=== PATIENT | male | born 1955 | race Caucasian/White ===

== ENCOUNTER → 2017-06-18 | Outpatient (CLI) | payer BC ==
--- NOTE | 2017-06-18 11:23 | ECHOS ---
DATE OF SERVICE: 06/18/2017 TYPE OF REPORT: STRESS ECHOCARDIOGRAM INDICATION: Chest pain. BASELINE HEART RATE: 95 BASELINE BLOOD PRESSURE: 102/46 MAXIMUM HEART RATE: 148 MAXIMUM BLOOD PRESSURE: 191/42 85% MPHR: 135 100% MPHR: 159 METS: 9.7 MAXIMUM STAGE REACHED: II TOTAL EXERCISE TIME: 8:01 Baseline EKG revealed a normal sinus rhythm without significant ST-T changes. Patient walked on a standard Jone protocol for 8 minutes, achieved a maximum heart rate of 148 beats per minute which is well above 85% of predicted maximal. He developed fatigue and shortness of breath but did not have any angina or arrhythmia. EKG did not reveal any ST-segment changes to indicate ischemia. By EKG criteria, this is a negative stress test with fair exercise capacity. Baseline echo imaging revealed normal wall motion and wall thickening of all segments. At peak exercise, there was good augmentation of left ventricular wall motion and wall thickening of all segments suggesting that there is no evidence of stress induced ischemia on this study. FINAL IMPRESSION: 1. Fair exercise capacity with a negative stress test by EKG criteria. 2. Normal stress echocardiogram. AMADOR
== END ==
LOC: RADNMMAIN 09:56
PROVIDERS: ATTEND Family Medicine
DX: R07.89 Other chest pain (principal)
CPT/HCPCS: 93017; 93350

== ENCOUNTER 2018-01-01 06:20 | Day surgery (SDC) | payer BC ==
[2017-12-27 16:03] VITALS: BMI 29.2
[~2018-01-01 06:20] MED LIST: LACTATED RINGERS 1,000 ML IV SCH; MOXIFLOXACIN HCL 0.5% DROPS 3 ML BTL OP ONE; TETRACAINE 0.5% OPHTH (PF) DROPS 4 ML BTL OP ONE; TIMOLOL 0.5% OPHTH DROPS 5 ML BTL OP ONE
[2018-01-01] MEDS: CYCLOPENTOLATE 1% OPHTH SOLN 2 ML BTL OP ONE ×3 (06:35→06:41)
[2018-01-01] MEDS: PHENYLEPHRINE 2.5% OPHTH DRP 2ML OP NR ×3 (06:44→06:50)
[2018-01-01] MEDS ORDERED: LIDOCAINE 1% 20 ML VIAL (10MG/ML) FOR IV START INTRADERMA ONE (06:50)
[2018-01-01 06:56] VITALS: RESP 16; TEMP 98
[2018-01-01 07:04] LABS: Glucose,Whole Blood 108 mg/dL (75-99)
[2018-01-01] MEDS ORDERED: BALANCED SALT IRRIG SOLN COMB2 15 ML IRRIG.SOLN INTRAOCULA ONE (07:24)
[2018-01-01] MEDS ORDERED: HYALURONATE SODIUM INTRAOCULAR 1 EACH SYRINGE (12MG/ML) INTRAOCULA ONE (07:24)
[2018-01-01] MEDS ORDERED: LIDOCAINE 1% (PF) 10MG/ML VIAL MISCELLANE ONE (07:25)
[2018-01-01] MEDS ORDERED: MIDAZOLAM 2 MG/2 ML VIAL ONE (07:33)
[2018-01-01] MEDS ORDERED: fentaNYL (PF) 50 MCG/ML 2 ML AMP ONE (07:33)
[2018-01-01] MEDS ORDERED: EPINEPHrine (PF) 0.3 ML in BALANCED SALT IRRIG SOLN COMB2 500 ML IRRIGATION ONE (07:35)
--- NOTE | 2018-01-01 08:03 | P.OP ---
Date of Procedure: 01/01/18 Preoperative Diagnosis: NS Postoperative Diagnosis: same Procedure(s) Performed: PIOL OS Implants: PCB00 24.00 Anesthesia: MAC Surgeon: Ad Cline Estimated Blood Loss (ml): 0 Pathology: none sent Condition: stable Disposition: same day Indications for Procedure: blurry vision Operative Findings: No comlpications
[2018-01-01 08:22] VITALS: BP 113/72; PULSE 89
[2018-01-01 08:25] LABS: Glucose,Whole Blood 98 mg/dL (75-99)
--- NOTE | 2018-01-01 14:33 | OP ---
OPERATIVE REPORT DATE OF SURGERY: 01/01/2018. PROCEDURE: Phacoemulsification of cataract and intraocular lens implant of the left eye. PREOPERATIVE DIAGNOSIS: Nuclear sclerosis. ESTIMATED BLOOD LOSS:: Zero. SPECIMEN TAKEN:: None. NARRATIVE:: After obtaining the appropriate consent, the patient was brought to the Operating Room where the patient was placed under cardiac monitoring and prepped and draped in the usual sterile manner. At the 5 oclock position a 15 degree super sharp blade was used to create a paracentesis followed by instillation of 1% Xylocaine MPF 50:50 mix with BSS into the anterior chamber. This was followed by Amvisc to stabilize the anterior chamber. At the 3 oclock position a self-sealing corneal flap incision was created using 2.8 mm jorge keratome. A cystatome was used to initiate a continuous tear capsulorrhexis which was completed with the Utrata forceps. A Binkhorst cannula was used to hydrodissect the lens nucleus followed by hydrodelineation. Phacoemulsification of the lens was performed utilizing phacochop in 22.25 seconds at 18% power. The remaining cortical material was removed using the irrigation aspiration mode followed by additional 1% Xylocaine MPF into the anterior chamber followed by viscoelastic to stabilize the capsular bag. An CASSIE PCB 00 24.0 diopters posterior chamber lens was placed into the capsular bag without difficulty. The remaining viscoelastic material was removed from the anterior chamber with the irrigation/aspiration. Balanced salt solution was used to normalize the intraocular pressure. The incision was checked for watertight integrity. The patient then received two drops of 0.5% timolol followed by two drops Vigamox, was lightly patched and shielded in the usual manner. There were no complications from the procedure. The patient tolerated the procedure well and was returned to recovery in good condition. MMODL / IJN: [id number] /
== END 2018-01-01 08:44 | disposition home or self-care (01) ==
LOC: OR 06:20
PROVIDERS: ATTEND Ophthalmology
DX: E11.36 Type 2 diabetes mellitus with diabetic cataract (principal); E11.3392 Type 2 diabetes mellitus with moderate nonproliferative diabetic retinopathy without macular edema, left eye; E11.3291 Type 2 diabetes mellitus with mild nonproliferative diabetic retinopathy without macular edema, right eye; H52.03 Hypermetropia, bilateral; H52.223 Regular astigmatism, bilateral; H52.4 Presbyopia; Z90.49 Acquired absence of other specified parts of digestive tract; Z87.891 Personal history of nicotine dependence; Z79.82 Long term (current) use of aspirin; Z79.4 Long term (current) use of insulin; Z79.899 Other long term (current) drug therapy; I10 Essential (primary) hypertension; Z97.3 Presence of spectacles and contact lenses
CPT/HCPCS: 66984; C1780; J2250; J0171; J3010; J2001

== ENCOUNTER 2018-01-29 06:12 | Day surgery (SDC) | payer BC ==
[2018-01-24 14:45] VITALS: BMI 27.9
[2018-01-29 06:33] VITALS: TEMP 98.1
[2018-01-29] MEDS: CYCLOPENTOLATE 1% OPHTH SOLN 2 ML BTL OP ONE ×3 (06:38→06:58)
[2018-01-29] MEDS: PHENYLEPHRINE 2.5% OPHTH DRP 2ML OP NR ×4 (06:41→07:54)
[2018-01-29 06:58] LABS: Glucose,Whole Blood 103 mg/dL (75-99)
[2018-01-29] MEDS ORDERED: LIDOCAINE 1% 20 ML VIAL (10MG/ML) FOR IV START INTRADERMA ONE (06:58)
[2018-01-29] MEDS ORDERED: MIDAZOLAM 2 MG/2 ML VIAL ONE (07:35)
[2018-01-29] MEDS ORDERED: fentaNYL (PF) 50 MCG/ML 2 ML AMP ONE (07:35)
[2018-01-29] MEDS ORDERED: EPINEPHrine (PF) 0.3 ML in BALANCED SALT IRRIG SOLN COMB2 500 ML IRRIGATION ONE (07:45)
[2018-01-29] MEDS ORDERED: HYALURONATE SODIUM INTRAOCULAR 1 EACH SYRINGE (12MG/ML) INTRAOCULA ONE (07:52)
[2018-01-29] MEDS ORDERED: BALANCED SALT IRRIG SOLN COMB2 15 ML IRRIG.SOLN IRRIGATION ONE (07:53)
[2018-01-29] MEDS ORDERED: LIDOCAINE 1% (PF) 10MG/ML VIAL MISCELLANE ONE (07:54)
--- NOTE | 2018-01-29 08:07 | P.OP ---
Date of Procedure: 01/29/18 Preoperative Diagnosis: NS Postoperative Diagnosis: same Procedure(s) Performed: PIOL, OD Implants: PCB00 24.00 Anesthesia: MAC Surgeon: Ad Cline Estimated Blood Loss (ml): 0 Pathology: none sent Condition: stable Disposition: same day Indications for Procedure: blurry vision Operative Findings: no complications
[2018-01-29 08:09] VITALS: RESP 16
[2018-01-29 08:24] VITALS: BP 105/65; PULSE 79
[2018-01-29 08:31] LABS: Glucose,Whole Blood 85 mg/dL (75-99)
--- NOTE | 2018-01-30 10:33 | OP ---
OPERATIVE REPORT DATE OF SURGERY: 01/29/2018 PROCEDURES: Phacoemulsification of cataract and intraocular lens implant of the right eye. PREOPERATIVE DIAGNOSIS:: Nuclear sclerosis. POSTOPERATIVE DIAGNOSIS:: Nuclear sclerosis. OPERATION:: Clear cornea phacoemulsification of cataract @@OD/OS eye. ESTIMATED BLOOD LOSS:: Zero. SPECIMEN TAKEN:: None. NARRATIVE:: After obtaining the appropriate consent, the patient was brought to the Operating Room where the patient was placed under cardiac monitoring and prepped and draped in the usual sterile manner. At the 11 o'clock position a 15 degree super sharp blade was used to create a paracentesis followed by instillation of 1% Xylocaine MPF 50:50 mix with BSS into the anterior chamber. This was followed by to stabilize the anterior chamber. At the 9 o'clock position a self-sealing corneal flap incision was created using 2.8 mm jorge keratome. A cystotome was used to initiate a continuous tear capsulorrhexis which was completed with the Utrata forceps. A Binkhorst cannula was used to hydrodissect the lens nucleus followed by hydrodelineation. Phacoemulsification of the lens was performed utilizing phaco-chop in 18.39seconds at 11% power. The remaining cortical material was removed using the irrigation aspiration mode followed by additional 1% Xylocaine MPF into the anterior chamber followed by viscoelastic Amvisc to stabilize the capsular bag. An VHNOXM01 24.0 posterior chamber lens was placed into the capsular bag without difficulty. The remaining viscoelastic material was removed from the anterior chamber with the irrigation/aspiration. Balanced salt solution was used to normalize the intraocular pressure. The incision was checked for watertight integrity. The patient then received two drops of 0.5% timolol followed by two drops Vigamox, was lightly patched and shielded in the usual manner. There were no complications from the procedure. The patient tolerated the procedure well and was returned to recovery in good condition. MMODL / IJN: [id number] /
== END 2018-01-29 08:46 | disposition home or self-care (01) ==
LOC: OR 06:12
PROVIDERS: ATTEND Ophthalmology
DX: E11.36 Type 2 diabetes mellitus with diabetic cataract (principal); Z98.42 Cataract extraction status, left eye; Z96.1 Presence of intraocular lens; Z90.49 Acquired absence of other specified parts of digestive tract; Z79.4 Long term (current) use of insulin; Z79.82 Long term (current) use of aspirin; Z79.899 Other long term (current) drug therapy; E11.3392 Type 2 diabetes mellitus with moderate nonproliferative diabetic retinopathy without macular edema, left eye; E11.3291 Type 2 diabetes mellitus with mild nonproliferative diabetic retinopathy without macular edema, right eye; H52.03 Hypermetropia, bilateral; H52.223 Regular astigmatism, bilateral; H52.4 Presbyopia; I10 Essential (primary) hypertension
CPT/HCPCS: 66984; C1780; J2250; J0171; J3010; J2001

== ENCOUNTER → 2018-12-10 | Outpatient (CLI) | payer BC ==
[2018-12-10 08:42] LABS: Blood Urea Nitrogen 13 mg/dL (9-20)
--- NOTE | 2018-12-10 13:28 | CT ---
EXAMINATION TYPE: CT abdomen pelvis w con DATE OF EXAM: 12/10/2018 COMPARISON: None INDICATION: Abdominal pain DLP: 1772 mGycm, Automated exposure control for dose reduction was used. CONTRAST: 100 ml mL of Isovue 300. Study performed with Oral Contrast TECHNIQUE: Axial images were obtained from above the diaphragm to the pubic rami in the axial plane a t 5 mm thick sections. Reconstructed images are reviewed on the computer in the coronal plane. FINDINGS: Limited CT sections are obtained the lung bases. The lung bases are clear. CT ABDOMEN: Liver: Normal Spleen: Normal Pancreas: Normal Adrenal glands: There is a 0.9 cm nodule in the lateral right adrenal gland. Gallbladder: Tiny gallstone may be within the dependent portion of the gallbladder neck of the gallbl adder. Kidneys: No masses are evident. No hydronephrosis is present. No cysts are present. Delayed images were obtained through the kidneys, which remain unremarkable. Aorta: Vascular calcification is within the aorta. Inferior vena cava: Normal. CT PELVIS: Loops of bowel within the abdomen and pelvis are normal. There are loops of bowel which are incom pletely distended or lack oral contrast limiting their evaluation. Appendix: Normal as visualized. Urinary bladder: Normal. Genitourinary structures: Prostate is at the upper limits of normal for size. Some minimal calcificat ion is present. Osseous structures: No suspicious lytic or sclerotic lesions. IMPRESSIONS: 1. Tiny gallstone may be present. 2. 0.9 cm nodule right adrenal gland.
== END | disposition home or self-care (01) ==
LOC: RADCTMAIN 07:59
PROVIDERS: ATTEND Surgery
DX: E27.8 Other specified disorders of adrenal gland (principal); R10.32 Left lower quadrant pain
CPT/HCPCS: 82565; 84520; 74177; 36415; Q9967

== ENCOUNTER 2019-08-15 12:52 | Emergency (ER) | payer BC ==
[2019-08-15 12:59] VITALS: RESP 18; TEMP 98.1
[2019-08-15] MEDS ORDERED: KETOROLAC 30 MG/ML 1 ML VIAL IM STA (13:26)
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
[2019-08-15 13:41] VITALS: BP 112/69; PULSE 81
--- NOTE | 2019-08-15 14:08 | XR ---
EXAMINATION TYPE: XR ankle complete LT , 3 VIEWS DATE OF EXAM ORDERED: 08/15/2019 HISTORY: trauma. COMPARISON: None. FINDINGS: No fracture or dislocation is seen. There is degenerative change present in the tibiotalar joint. There is a small plantar calcaneal spur. No joint effusion is seen. IMPRESSION: NO ACUTE OSSEOUS LESION.
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
== END 2019-08-15 14:56 | disposition home or self-care (01) ==
LOC: EC 12:52
DX: S80.812A Abrasion, left lower leg, initial encounter (principal); E11.9 Type 2 diabetes mellitus without complications; Z79.82 Long term (current) use of aspirin; Z79.4 Long term (current) use of insulin; Z97.0 Presence of artificial eye; Z87.891 Personal history of nicotine dependence; V86.59XA Driver of other special all-terrain or other off-road motor vehicle injured in nontraffic accident, initial encounter; Y92.410 Unspecified street and highway as the place of occurrence of the external cause; Y93.89 Activity, other specified
CPT/HCPCS: 73590; 73610; 99284; 96372; J1885

== ENCOUNTER → 2020-09-19 | Outpatient (CLI) | payer MEDICARE, BC ==
--- NOTE | 2020-09-19 10:35 | US ---
EXAMINATION TYPE: US thyroid st tissue head/neck DATE OF EXAM: 09/19/2020 COMPARISON: NONE CLINICAL HISTORY: E01.0 Thyromegaly. Palpable area right neck per patient GLAND SIZE: Right Lobe: 4.6 x 2.0 x 1.8 cm Overall Parenchyma: homogenous Left Lobe: 4.6 x 1.3 x 1.8 cm Overall Parenchyma: homogeneous Isthmus Thickness: cm NODULES RIGHT: # of nodules measured on right: 1. 0.8 X 05 x 0.7 cm hypoechoic solid nodule at the lower pole with well-defined margins; . This n odule is wider than tall and shows intranodular vascularity. Prior size: No prev 2. 0.5 X 0.4 x 0.4 cm hypoechoic solid nodule at the upper pole with well-defined margins; . This n odule is wider than tall and shows intranodular vascularity. Prior size: no previous LEFT: # of nodules measured on left: 1 1. 0.5 X 0.3 x 0.5 cm hypoechoic solid nodule at the upper pole with well-defined margins; . This nodule is wider than tall and shows intranodular vascularity. Prior size: No previous ISTHMUS: # of nodules measured in the isthmus: 0 Bilateral neck scanned, no evidence of lymphadenopathy. No abnormality is visualized at the patient's palpable area IMPRESSION: Bilateral subcentimeter thyroid nodules.
== END | disposition home or self-care (01) ==
LOC: RADUSWWP 09:23
PROVIDERS: ATTEND Family Medicine
DX: E04.2 Nontoxic multinodular goiter (principal)
CPT/HCPCS: 76536

== ENCOUNTER 2020-09-27 12:54 | Day surgery (SDC) | payer MEDICARE, BC ==
[2020-09-27] MEDS ORDERED: ALPRAZolam 0.5 MG TAB PO STA (14:12)
[2020-09-27 14:30] VITALS: BP 115/68; PULSE 83; RESP 18; TEMP 97.1
--- NOTE | 2020-09-27 17:40 | US ---
EXAMINATION TYPE: US discontinued FNA panel DATE OF EXAM: 09/27/2020 COMPARISON: Ultrasound thyroid 09/19/2020 HISTORY: Thyroid nodule, E04.1 Review of 09/19/2020 thyroid ultrasound demonstrates subcentimeter bilateral thyroid nodules. Preprocedure ultrasound imaging of the bilateral thyroid today redemonstrates bilateral subcentimeter thyroid nodules. Utilizing ACR TI-RADS criteria: Right 0.8 cm thyroid nodule is mixed cystic and solid, iso- to hypoechoic, wider than tall, smoothly marginated, with no echogenic foci, and TR3 mildly suspicious, and not meeting size criteria for FNA (2.5 cm). Right 0.5 cm thyroid nodule is mixed cystic and solid, hypoechoic, wider than tall, smoothly marginat ed, with no echogenic foci, and TR3 mildly suspicious, and not meeting size criteria for FNA. Left 0.5 cm thyroid nodule is almost completely solid, isoechoic, wider than tall, smoothly marginate d, with no echogenic foci, and TR3 mildly suspicious, and not meeting size criteria for FNA. Findings and alternatives were discussed with the patient, including annual thyroid ultrasound for st ability. Fine-needle aspiration was also discussed with the patient. Patient in agreement with plan c anceling thyroid fine-needle aspiration procedure. IMPRESSION: 1. Canceled ultrasound-guided thyroid fine-needle aspiration. 2. Please see above description of bilateral thyroid nodules and ACR TI-RADS findings.
== END 2020-09-27 14:45 | disposition home or self-care (01) ==
LOC: RADPROMAIN 12:54
PROVIDERS: ATTEND Family Medicine
DX: E04.1 Nontoxic single thyroid nodule (principal); Z53.8 Procedure and treatment not carried out for other reasons
CPT/HCPCS: 76536

== ENCOUNTER 2024-01-14 07:28 | Day surgery (SDC) | payer MEDICARE, BC ==
[2024-01-14 08:10] VITALS: TEMP 97
[2024-01-14 08:14] LABS: Glucose,Whole Blood 150 mg/dL (70-110)
[2024-01-14] MEDS: LACTATED RINGERS 1,000 ML IV SCH (08:14)
[2024-01-14] MEDS ORDERED: PHENYLEPHRINE-0.9% NACL SYG 1,000 MCG/10 ML SYRINGE ONE (08:29)
[2024-01-14] MEDS ORDERED: LIDOCAINE 1% INJ 10MG/ML (20 ML MDV) ONE (08:29)
[2024-01-14] MEDS ORDERED: PROPOFOL 10 MG/ML 20 ML VIAL IV ONE (08:29)
--- NOTE | 2024-01-14 08:32 | P.GSHP ---
History of Present Illness H&P Date: 01/14/24 Chief Complaint: Colon cancer screening 68-year-old male here for colonoscopy. Last colonoscopy 5 years ago or so. Patient with history of previous colostomy and subsequent reversal for diverticulitis. No bowel complaints. No family history of colon cancer. Past Medical History Past Medical History: Diabetes Mellitus, Hyperlipidemia, Hypertension Additional Past Medical History / Comment(s): diverticulitis - bowel resection 20 yrs ago History of Any Multi-Drug Resistant Organisms: None Reported Past Surgical History: Bowel Resection Additional Past Surgical History / Comment(s): colonoscopy, bilat. cataract removal Past Anesthesia/Blood Transfusion Reactions: No Reported Reaction Smoking Status: Former smoker - Past Family History Mother Family Medical History: No Reported History Medications and Allergies Home Medications Medication Instructions Recorded Confirmed Type metFORMIN HCL [Glucophage] 1,000 mg PO BID 12/27/17 01/14/24 History lisinopriL [Zestril] 5 mg PO HS 09/22/20 01/14/24 History Atorvastatin [Lipitor] 10 mg PO DAILY 01/09/24 01/14/24 History Empagliflozin [Jardiance] 10 mg PO QAM 01/09/24 01/14/24 History Insulin Glargine/Lixisenatide 18 units SQ QAM 01/09/24 01/14/24 History [Soliqua 100 Unit-33 Mcg/ml Pen] Propranolol HCl [Inderal Xl] 120 mg PO HS 01/09/24 01/14/24 History Allergies Allergy/AdvReac Type Severity Reaction Status Date / Time No Known Allergies Allergy Verified 01/14/24 07:55 Surgical - Exam Vital Signs Temp Pulse Resp BP Pulse Ox 97.0 F L 78 14 119/61 96 01/14/24 07:59 01/14/24 07:59 01/14/24 07:59 01/14/24 07:59 01/14/24 07:59 Physical exam: General: Well-developed, well-nourished HEENT: Normocephalic, sclerae nonicteric Abdomen: Nontender, nondistended Extremities: No edema Neuro: Alert and oriented Results - Labs Abnormal Lab Results - Last 24 Hours (Table) 01/14/24 Range/Units 08:12 POC Glucose (mg/dL) 150 H (70-110) mg/dL Assessment and Plan (1) Colon cancer screening Narrative/Plan: Will proceed with colonoscopy at this time. Current Visit: Yes Status: Acute Code(s): Z12.11 - ENCOUNTER FOR SCREENING FOR MALIGNANT NEOPLASM OF COLON SNOMED Code(s): 708973266
--- NOTE | 2024-01-14 08:48 | P.PCN ---
Date of Procedure: 01/14/24 Procedure(s) Performed: PREOPERATIVE DIAGNOSIS: Colon cancer screening POSTOPERATIVE DIAGNOSIS: Ascending colon polyp PROCEDURE: Colonoscopy with snare polypectomy ANESTHESIA: MAC SURGEON: Matthew Olson M.D. SPECIMENS: Polyp ENDOSCOPIC PROCEDURE: The patient was placed on the endoscopy table in the left decubitus position. The Olympus colonoscope was inserted into the anus and passed under direct visualization to the base of the cecum. The appendiceal orifice was visualized. From that point the scope was slowly withdrawn inspecting all surfaces carefully. There were no neoplastic inflammatory or polypoid lesions throughout the cecum cecum. In the ascending colon a small sessile polyp measuring about 1.5 cm in length was removed in 2 pieces using the snare with cautery technique. The remainder of the ascending transverse descending and rectum appeared normal. The patient's previous colorectal anastomosis was widely patent. The prep was still somewhat suboptimal however most of the retained stool we could irrigate nicely. There was no diverticulosis seen. Digital rectal examination was normal. The patient was taken to the recovery room in stable condition per anesthesia guidelines. RECOMMENDATIONS: Await biopsy results. Tentatively plan repeat colonoscopy 5 years.
[2024-01-14 09:24] VITALS: BP 112/54; PULSE 72; RESP 16
== END 2024-01-14 09:44 | disposition home or self-care (01) ==
LOC: ORWHC2ENDO 07:28
PROVIDERS: ATTEND Surgery
DX: Z12.11 Encounter for screening for malignant neoplasm of colon (principal); D12.2 Benign neoplasm of ascending colon; I10 Essential (primary) hypertension; E78.5 Hyperlipidemia, unspecified; E11.9 Type 2 diabetes mellitus without complications; Z87.891 Personal history of nicotine dependence; Z98.890 Other specified postprocedural states; Z98.41 Cataract extraction status, right eye; Z98.42 Cataract extraction status, left eye; Z79.84 Long term (current) use of oral hypoglycemic drugs; Z79.1 Long term (current) use of non-steroidal anti-inflammatories (NSAID); Z79.899 Other long term (current) drug therapy
CPT/HCPCS: 88305; 45385; J2001; J2704; J2371; 45382